=== PATIENT | male | born 1990 | race Caucasian/White ===

== ENCOUNTER 2018-03-01 12:13 | Emergency (ER) | payer OTHER ==
[2018-03-01] MEDS ORDERED: Albuterol HFA INHALER* 8 gm MDI INH ONE (13:08)
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
[2018-03-01 14:29] VITALS: BP 148/78
== END 2018-03-01 14:29 | disposition home or self-care (01) ==
LOC: ED 12:13
DX: J70.5 Respiratory conditions due to smoke inhalation (principal); R07.9 Chest pain, unspecified; R05 Cough
CPT/HCPCS: 71046; 99282; A9270-GY